=== PATIENT | male | born 1975 | race Caucasian/White ===

== ENCOUNTER 2019-07-20 16:29 | Emergency (ER) | payer OTHER ==
[~2019-07-20] VITALS: Ht 193 cm; Wt 95.3 kg
[2019-07-20 16:34] VITALS: BP_SYST 122
--- NOTE | 2019-07-20 16:37 | NUR ---
Patient triaged and placed in waiting room. VSS and patient appears in no acute distress at this time. Accompanied by self, awaiting available bed, and MD notified of need for MSE.
--- NOTE | 2019-07-20 18:06 | NUR ---
Patient to ER bed 7 to gown for evaluation. Side rails up. Report given to JEAN Reina.
--- NOTE | 2019-07-20 18:07 | NUR ---
ER SUMEET Valentine examining patient.
--- NOTE | 2019-07-20 18:20 | NUR ---
Patient came to ER for R jaw pain and swelling. Currently in room resting comfortably, no distress at this time
[2019-07-20 18:31] VITALS: BP_SYST 122
--- NOTE | 2019-07-20 18:32 | NUR ---
Patient given written and verbal discharge instructions and verbalizes understanding. ER MD discussed with patient the results and treatment provided. Patient in stable condition. ID arm band removed. Rx of PROMETHAZINE, ALBUTEROL,MOTRIN, TYLENOL, AND AUGMENTIN given. Patient educated on pain management and to follow up with PMD. Pain Scale 0. Opportunity for questions provided and answered. Medication side effect fact sheet provided.
== END 2019-07-20 18:31 | disposition home or self-care (01) ==
LOC: SED 16:29
DX: H66.91 Otitis media, unspecified, right ear (principal); R03.0 Elevated blood-pressure reading, without diagnosis of hypertension
CPT/HCPCS: 99283